=== PATIENT | female | born 1980 | race Caucasian/White ===

== ENCOUNTER 2016-06-10 21:11 | Emergency (ER) | payer OTHER ==
--- NOTE | ~2016-06-10 | CR72 ---
[facility] A Service of [facility] RADIOLOGY TEXT RESULTS PATIENT: FRANK WEBER LOCATION: [facility] : 84 UNIT #: [id number] AGE: [address]: Eze Hong MD SEX: F ORDER DR: [id number] [facility] [address] [place], [place] [address] [id number] E MR#: [id number] Acc #: [id number] NAME: FRANK WEBER : 1980 SEX: F STUDY DATE/TIME: 06/10/2016 21:30 UNIT: [facility] ROOM: STUDY DESCRIPTION: CR Chest Single View Portable Attending Physician: Eze Hong M.D. Ordering Physician: Eze Hong M.D. Primary Care Physician: Primary Care Physician No MEDICAL IMAGING REPORT This report is preliminary unless electronic signature is present EXAM Single portable chest performed on 06/10/2016 at 2130 hours. HISTORY 35-year-old female with shortness of breath starting today. FINDINGS In comparison to the previous exam of 09/08/2015, there has been improvement in aeration of the right lung base. Decreased atelectasis is noted. The heart is not enlarged. No new consolidation or infiltrate is identified. IMPRESSION Improved aeration of the right lung base since 09/08/2015. No cardiac enlargement or acute pulmonary infiltrate otherwise identified. Dictated by... Aidan Nair M.D. THIS IS AN ELECTRONICALLY VERIFIED REPORT Aidan Nair M.D. at 06/11/2016 7:04 PM RP/haven TD: 06/11/2016 01:35 JOB #: [id number] MEDICAL IMAGING REPORT COPY
[~2016-06-10 21:11] MED LIST: ASPIRIN81 M2 PO; BENADRYL25 MG PO; BENZONATATE200 M1 PO; BUMETANIDE2 M1 PO; CLEOCIN PO; CUBICIN IV; HYDROXYZINE HCL25 M1 PO; K-LOR20 MEQ PO; LEVAQUIN750 MG PO; LOPRESSOR PO; METHADONE; METHADONE HCL10 MG PO; MORGIDOX100 MG PO; NO MEDICATIONS; OXYCODONE HCL5 M1 PO; PARAGARD T; PREDNISONE PO; TRIAMCINOLONE A15 G3 EXT; VICODIN 5/1 TAB 5/50 DOB; WAL DRYL TOP
[2016-06-11 00:20] LABS: ALBUMIN SERUM 4.4 g/dL (3.5-5.0); BILIRUBIN, DIRECT 0.1 mg/dL (0.0-0.2); BILIRUBIN,INDIRECT 0.6 mg/dL (0.0-0.9); BILIRUBIN,TOTAL 0.7 mg/dL (0.2-2.0); CALCIUM SERUM 9.1 mg/dL (8.4-10.2); CREATININE SERUM 1.2 mg/dL (0.6-1.4); POTASSIUM 3.8 mmol/L (3.5-5.1); PROTEIN TOTAL SERUM 8.2 g/dL (6.0-8.3)
[2016-06-25] MEDS ORDERED: METOPROLOL SUCC25 MG PO (11:25)
[2016-06-25] MEDS ORDERED: K-DUR20 ME1 PO (11:25)
[2016-06-25] MEDS ORDERED: BUMEX1 MG PO (11:25)
[2016-06-25] MEDS ORDERED: ASPIRIN81 MG PO (11:26)
[2016-06-25] MEDS ORDERED: SEROQUEL PO (11:26)
== END 2016-06-11 00:32 | disposition home or self-care (01) ==
LOC: CED 21:11
PROVIDERS: Emergency Medicine
DX: T42.4X1A Poisoning by benzodiazepines, accidental (unintentional), initial encounter (principal); F11.129 Opioid abuse with intoxication, unspecified; Z88.8 Allergy status to other drugs, medicaments and biological substances; F17.200 Nicotine dependence, unspecified, uncomplicated
CPT/HCPCS: 36415; 71010; 80048; 80076; 96374; 99283; J2310

== ENCOUNTER 2016-06-25 11:40 | Emergency (ER) | payer OTHER ==
[~2016-06-25 11:40] MED LIST changes: +ASPIRIN81 MG PO; +BUMEX1 MG PO; +K-DUR20 ME1 PO; +METOPROLOL SUCC25 MG PO; +SEROQUEL PO
== END 2016-06-25 11:45 | disposition home or self-care (01) ==
LOC: SED 11:40
DX: T42.4X1A Poisoning by benzodiazepines, accidental (unintentional), initial encounter (principal); Y92.9 Unspecified place or not applicable; F17.210 Nicotine dependence, cigarettes, uncomplicated; Z79.899 Other long term (current) drug therapy; Z88.8 Allergy status to other drugs, medicaments and biological substances
CPT/HCPCS: 36415; 99282; 99283